=== PATIENT | female | born 1950 | race Caucasian/White ===

== ENCOUNTER 2016-07-08 12:43 | Day surgery (SDC) | payer OTHER ==
--- NOTE | ~2016-07-08 | EGD ---
EGD REPORT [facility] [address] [id number] NAME: CRISTIANA ARTEAGA : [birth year] STATUS : REG [facility]#: [id number] AGE: 66 ADM/REG DATE : 07/08/16 MR#: [id number] REPORT SERV DATE: 07/08/16 DICTATED BY: LEFTY ESPITIA DATE: 07/08/16 REPORT STATUS : Draft [facility]ANS[facility]IBED BY: [facility] DATE: 07/08/16 [facility] Patient Name: Cristiana Arteaga Date of : 1950 Attending MD: LEFTY ESPITIA, Procedure Date No Time: 07/08/2016 Procedure: ERCP Indications: Sphincter of Oddi dysfunction/spasm Referring MD: ROLANDA HASSAN Medicines: General Anesthesia Complications: No immediate complications. Estimated blood loss: None Procedure: Pre-Anesthesia Assessment: - ASA Grade Assessment: III - A patient with severe systemic disease. After obtaining informed consent, the scope was passed under direct vision. Throughout the procedure, the patient's blood pressure, pulse, and oxygen saturations were monitored continuously. The TJF Q180V [id number] was introduced through the mouth, and advanced to the duodenum and used to inject contrast into the bile duct. The ERCP was accomplished without difficulty. The patient tolerated the procedure well. Findings: The major papilla was normal. The minor papilla was normal. Initial canulation was mildy difficult. A wire was placed in the PD and the bile duct was deeply cannulated with the short-nosed traction sphincterotome. Contrast was injected. I personally interpreted the bile duct images. Ductal flow of contrast was adequate. The main bile duct was diffusely dilated. The largest diameter was 15 mm. Biliary sphincterotomy was made with a traction (standard) sphincterotome using ERBE electrocautery. There was no post-sphincterotomy bleeding. The biliary tree was swept with a 12 mm balloon starting at the upper third of the main bile duct. Nothing was found. Sludge was swept from the duct. Impression: - The major papilla appeared normal. - The minor papilla appeared normal. - The entire main bile duct was dilated. Recommendation: - Return to previous diet. - Continue present medications. 100 mg indomethacin given VT immediately following the procedure. - Return to GI clinic in 3 weeks. Procedure Code(s): --- Professional --- EGD REPORT [place] [id number] [place]. 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 All rights reserved. The codes documented in this report are preliminary and upon social media marketing analyst review may be revised to meet current compliance requirements. LEFTY ESPITIA, 07/08/2016 5:20 PM Number of Addenda: 0 Note Initiated On: 07/08/2016 4:27 PM Scope Withdrawal Time 0 hours 0 minutes 0 seconds [id number] [id number]
[~2016-07-08 12:43] MED LIST: ASAB PO; COZAAR100 MG PO; GLUCOPHAGE1000 MG PO; GLUCOTROL5 PO; HYDROCHLOROT25 MG PO; INVOKANA300 MG PO; PRAVACHOL40 MG PO; ULTRAM50 PO; VICTOZA18 MG/3 ML SC
[2016-07-08 14:02] LABS: BUN (BLOOD UREA NITROGEN) 13 MG/DL (6-23); CALCIUM, SERUM 9.9 MG/DL (8.5-10.4); CHLORIDE, SERUM 101 MMOL/L (96-112); CO2 (CARBON DIOXIDE) 33 MMOL/L (24-34); CREATININE 0.66 MG/DL (0.55-1.02); GFR AFRICAN AMERICAN 106 ML/MIN (>=60); GFR NON AFRICAN AMERICAN 91 ML/MIN (>=60); GLUCOSE, SERUM 109 MG/DL (60-99); POTASSIUM, SERUM 4.4 MMOL/L (3.5-5.3); SODIUM, SERUM 139 MMOL/L (135-148)
[2016-07-08 19:05] LABS: CPK 98 U/L (0-200); TROPONIN I <0.02 NG/ML (<0.05)
[2016-07-08 19:06] LABS: CK-MB 2.2 NG/ML
== END 2016-07-08 22:24 | disposition home or self-care (01) ==
LOC: DMU 12:43
PROVIDERS: Anesthesiology; Internal Medicine Gastroenterology
PROC: 0F798ZZ Dilation of Common Bile Duct, Via Natural or Artificial Opening Endoscopic (ICD-10-PCS; principal; 2016-07-08 15:30)
DX: K83.4 Spasm of sphincter of Oddi (principal); Q44.0 Agenesis, aplasia and hypoplasia of gallbladder; Q44.1 Other congenital malformations of gallbladder; Q44.4 Choledochal cyst; Q44.5 Other congenital malformations of bile ducts; Q44.7 Other congenital malformations of liver; I10 Essential (primary) hypertension; R10.9 Unspecified abdominal pain; E78.5 Hyperlipidemia, unspecified; I48.91 Unspecified atrial fibrillation; E11.9 Type 2 diabetes mellitus without complications; Z79.899 Other long term (current) drug therapy; Z79.82 Long term (current) use of aspirin; Z79.84 Long term (current) use of oral hypoglycemic drugs
CPT/HCPCS: 74330; 80048; 82550; 82553; 82962; 84484; 93005; A9270-GY; C1769; J2250; J2270; J2370; J2405; J2710; J3010; J3301; Q9967